=== PATIENT | female | born 1950 | race Caucasian/White ===

== ENCOUNTER 2022-03-23 10:15 | Outpatient (CLI) | payer MEDICARE, OTHER, SELFPAY ==
--- NOTE | ~2022-03-23 | XR_ITS ---
XR shoulder LT min 2V 03/23/2022 11:18 Indication: Recent fall. Left shoulder pain. Procedure: 5 views of the left shoulder Comparison: No prior studies for comparison. Findings: There is a nondisplaced fracture distal aspect of the left clavicle. Acromioclavicular join t and anatomic alignment. Mild degenerative change of the glenohumeral joint. Osteopenia. Calcified g ranuloma left lung. Impression: 1: Nondisplaced fracture distal aspect of the left clavicle. Reviewed, dictated and finalized at location B. Impression: 1: Nondisplaced fracture distal aspect of the left clavicle.
--- NOTE | ~2022-03-23 | XR_ITS ---
[id number] 03/23/2022 11:17 Indication: Recent fall. Neck pain. Procedure: 4 views of the cervical spine Comparison: No prior studies for comparison. Findings: No fracture, subluxation or dislocation. There is anatomic alignment of the cervical spine. There is disc narrowing at C5-6 and C6-7. No prevertebral soft tissue swelling. Odontoid process wit hin normal limits. Lung apices are normal. Impression: 1: Moderate cervical spondylosis. Reviewed, dictated and finalized at location B. Impression: 1: Moderate cervical spondylosis.
--- NOTE | ~2022-03-23 | XR_ITS ---
EXAMINATION: XR ribs LT 2V w CXR 2V INDICATION: Left rib pain after fall TECHNIQUE: AP and lateral views of the chest and 3 views of the left ribs were obtained. COMPARISON: 04/09/2018 FINDINGS: The lungs are free of acute opacities. No pleural effusion or pneumothorax. The cardiomedia stinal silhouette is normal. A calcified nodule of the left lower lobe is consistent with old granulo matous disease. There is moderate thoracic spondylosis. There is a nondisplaced fracture at the later al aspect of the left sixth rib. Surgical changes are noted in the lumbar spine. IMPRESSION: 1. Nondisplaced left sixth rib fracture. 2. No acute cardiopulmonary abnormality. Reviewed, dictated and finalized at location A.
== END 2022-03-23 10:16 | disposition home or self-care (01) ==
LOC: CHSIMG 10:21
PROVIDERS: PCP Internal Medicine; Visit Provider Internal Medicine
DX: M54.2 Cervicalgia (principal); M25.512 Pain in left shoulder; R07.89 Other chest pain; S22.32XA Fracture of one rib, left side, initial encounter for closed fracture; S42.035A Nondisplaced fracture of lateral end of left clavicle, initial encounter for closed fracture; W19.XXXA Unspecified fall, initial encounter
CPT/HCPCS: 71046; 71100; 72040; 73030